=== PATIENT | male | born 2000 | race Caucasian/White ===

== ENCOUNTER 2019-03-07 17:10 | Emergency (ER) | payer SELFPAY ==
[~2019-03-07] VITALS: Ht 170.2 cm; Wt 70.0 kg
[2019-03-07] MEDS ORDERED: SODIUM CHLORIDE 0.9% 1,000 ML IV ONE (17:41)
[2019-03-07] MEDS ORDERED: MORPHINE SULFATE 4 MG/ML CPJ (NOT FOR IM USE) IV STA (17:41)
[2019-03-07] MEDS ORDERED: ONDANSETRON HCL 4MG/2ML INJ IV STA (17:41)
[2019-03-07] MEDS ORDERED: BACITRACIN ZINC OINT UDPKT TOP ONE (17:45)
[2019-03-07] MEDS ORDERED: LIDOCAINE HCL/PF 1% 10 MG/ML 5ML VIAL IJ ONE (17:45)
[2019-03-07] MEDS ORDERED: TETANUS, DIPHTHERIA, PERTUSSIS VAC/PF 0.5ML (>7YR OLD) IM ONE (17:45)
[2019-03-07 18:00] LABS: BASOPHILS % 0.7 % (0.0-2.0); EOSINOPHILS % 2.9 % (0.0-5.0); HEMOGLOBIN. 14.9 g/dL (14.0-18.0); LYMPHOCYTES % 22.6 % (20.0-50.0); MEAN CORPUSCULAR HEMOGLOBIN 31.8 pg (28.0-32.0); MEAN CORPUSCULAR VOLUME 91.5 fL (80.0-94.0); MEAN PLATELET VOLUME 6.9 fl (7.4-10.4); MONOCYTES % 6.7 % (2.0-8.0); NEUTROPHILS % 67.1 % (40.0-76.0); PLATELET 388 x1000/uL (130-400); RED CELL DISTRIBUTION WIDTH 14.5 % (11.6-14.6)
[2019-03-07 18:03] LABS: CHLORIDE 104 mEq/L (98-107)
[2019-03-07] MEDS ORDERED: BACITRACIN 15GM TUBE TOP SCH (18:15)
[2019-03-07] MEDS ORDERED: BACITRACIN 15GM TUBE TOP ONE (20:30)
[2019-03-07] MEDS ORDERED: MORPHINE SULFATE 4 MG/ML CPJ (NOT FOR IM USE) IV ONE (21:00)
[2019-03-07 23:20] VITALS: BP 119/57
== END 2019-03-07 23:56 | disposition home or self-care (01) ==
LOC: ER 17:10
DX: S00.81XA Abrasion of other part of head, initial encounter (principal); S93.401A Sprain of unspecified ligament of right ankle, initial encounter; S83.92XA Sprain of unspecified site of left knee, initial encounter; V19.88XA Pedal cyclist (driver) (passenger) injured in other specified transport accidents, initial encounter; Y93.89 Activity, other specified; Y92.89 Other specified places as the place of occurrence of the external cause
CPT/HCPCS: 36415; 70450; 70486; 73560; 73610; 80053; 85025; 90471; 90715; 96374; 96375; 96376; 99284; J2270; J2405; J3490; J7030